=== PATIENT | male | born 1970 | race African-American/Black ===

== ENCOUNTER 2016-08-10 06:51 | Day surgery (SDC) | payer MEDICAID ==
[~2016-08-10 06:51] MED LIST: ACETAMINOPHEN 500 MG TABLET PO PRN; HYDROmorphone HCL 2 MG/ML VIAL IV PRN; MAG HYDROX/ALUMINUM HYD/SIMETH 30 ML UDC PO PRN; MAGNESIUM HYDROXIDE 30 ML UDC PO PRN; ONDANSETRON HCL/PF 2 MG/ML VIAL IV PRN; PROMETHAZINE HCL 25 MG in DEXTROSE 5 % IN WATER 50 ML IV PRN; RINGERS SOLUTION,LACTATED 1,000 ML IV PRN; ZOLPIDEM TARTRATE 5 MG TABLET PO PRN; ceFAZolin SODIUM 1 GM VIAL IV PRN; diphenhydrAMINE HCL 50 MG/ML VIAL IV PRN; oxyCODONE HCL/ACETAMINOPHEN 1 TAB TABLET PO PRN
[2016-08-10] MEDS ORDERED: RINGERS SOLUTION,LACTATED 1,000 ML IV ONE (07:21)
--- NOTE | 2016-08-10 09:03 | OR ---
Operative Report - Dictated Report Narrative: Date: 08/10/2016 Physician: Esa Vanegas M.D. Mortgage Loan Processor: Geoffrey Phillips PA-C Preoperative diagnosis: Symptomatic deep implants of right shoulder Postoperative diagnosis: Symptomatic deep implants of right shoulder Procedure: Deep implant removal right shoulder Anesthesia: General plus regional Complications: None Estimated blood loss: 100 mL Specimens: None Retained implants: None Drains: None Indications: Bunny Is a 45 year-old male who has been followed in my clinic with complaints of shoulder pain consistent with symptomatic deep implants. Physical exam and diagnostic imaging were consistent with his complaints and concern for impingement of his previous proximal humeral plate on the acromion. Conservative measures have failed including, but not limited to, passage of time, activity modification, medications, physical therapy/home exercise program , or injections. The risks, benefits, and alternatives were discussed in clinic. The risks being , bleeding, infection, blood clots, nerve, tendon , ligament, blood vessel injury, persistent pain, arthrosis, stiffness, need for prolonged therapy, need for additional procedures, and persistent symptoms. Consent was obtained in the clinic. Procedure: After marking the correct extremity in the preoperative holding area, a timeout was performed in the operating room. IV antibiotics consisting of 2 g of Ancef were administered prior to the procedure. A general followed by regional anesthetic was induced by the nurse hub inventory specialist. This was in the supine position, then the patient was transitioned to a lazy beachchair position with all bony prominences well-padded, head in neutral, the nonoperative arm well supported, and the legs padded with SCDs in place. The operative shoulder was then prepped and draped in a standard sterile fashion. Attention was turned to the previous scar on the right shoulder. This was used as our incision which was approximately 8 cm in length. Combination of blunt dissection and electrocautery was carried down through the subcutaneous tissue to the level of the deltopectoral fascia. This was incised and the deltopectoral interval was developed bluntly using finger dissection. He was noted to have significant scarring down of the deltoid which was bluntly released with finger dissection. The plate could be palpated and the tissue overlying the plate was debrided using a combination of electrocautery and sharp knife to reveal the plate. 3 proximal partially-threaded screws were removed followed by 4 distal cortical screws. An osteotome was then used to pry the plate from the bone which was then removed. Fluoroscopy was used to confirm removal of all implants. The wound was copiously irrigated with normal saline and closed in layered fashion. 0 Vicryl was utilized in order to repair the deltopectoral fascia. 3-0 Vicryl was placed in the subcutaneous tissue. The incision was closed with interrupted 4-0 nylon. Dressings consisting of Xeroform, 4 x 4, and tegaderm were applied. All sponge, needle, blade, and instrument counts were correct prior to closing the wounds. The patient was awoken and transferred to the postanesthesia care unit in stable condition.
[2016-08-10 10:48] VITALS: BP 118/66
[2016-08-10] MEDS ORDERED: SENNOSIDES/DOCUSATE SODIUM 1 TAB TABLET PO SCH (21:00)
== END 2016-08-10 06:52 | disposition home or self-care (01) ==
LOC: AMB 06:51
PROVIDERS: ATTEND Orthopaedic Surgery
PROC: 0RPJ04Z Removal of Internal Fixation Device from Right Shoulder Joint, Open Approach (ICD-10-PCS; principal; 2016-08-10 08:00)
DX: T84.84XA Pain due to internal orthopedic prosthetic devices, implants and grafts, initial encounter (principal); M25.511 Pain in right shoulder; Z68.30 Body mass index [BMI] 30.0-30.9, adult

== ENCOUNTER 2016-12-14 14:32 | Emergency (ER) | payer MEDICAID ==
[2016-12-14] MEDS ORDERED: TETRACAINE HCL 150 DROP BTL ONE (14:52)
[2016-12-14] MEDS ORDERED: GENTAMICIN SULFATE 3.5 APPL TUBE EACHEYE ONE (14:59)
[2016-12-14] MEDS ORDERED: IBUPROFEN 600 MG TABLET PO ONE (14:59)
--- NOTE | 2016-12-14 15:07 | ERNOTE ---
[facility] Date of Service: 12/14/16 Presenting Symptoms: eye pain Time Seen by Provider: 12/14/16 14:50 Source: patient, RN notes reviewed Exam Limitations: no limitations - Immun/Allergies/Home Medications Immunizations: IMMUNIZATION HX Immunizations Up to Date Yes History of Influenza Vaccine No Hx Pneumococcal Vaccination No Allergies/Adverse Reactions: Allergies Allergy/AdvReac Type Severity Reaction Status Date / Time shellfish derived Allergy Intermediate Hives Verified 12/14/16 14:44 Home Medications: HOME MEDICATIONS NK [No Home Medication] 12/14/16 [Last Taken Unknown] - History of Present Illness Narrative: 45 y/o male ambulatory to the ED for flash andre to both eyes 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 He reports starting to have pain last night that has continued today. 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 His last tetanus vaccination was in 2014. He has not taken anything for pain. He does not wear glasses or contacts. Date (Duration): 12/13/16 ENT Location: Present: eye (R), eye (L) Prearrival Treatment: Present: flushing eys Prior Treament: Reports: similar symptoms before. Denies: recently seen Review of Systems - Review of Systems Constitutional: Absent: recent illness, fever, chills EYE: Present: eye pain, tearing. Absent: eye discharge, blurred vision ENT: Absent: nose congestion, sore throat Respiratory: Absent: shortness of breath, cough Cardiology: Absent: chest pain, syncope Gastrointestinal/Abdominal: Absent: nausea, abdominal pain Genitourinary: Present: no symptoms reported Musculoskeletal: Present: no symptoms reported Skin: Absent: rash, lesions, change in color Neurological: Absent: headache, dizziness/light-headedness Endocrine: Present: no symptoms reported Hematologic/Lymphatic: Present: no symptoms reported Psych: Present: no symptoms reported - Patient's Past Medical History Patient History - Medical: GERD, Headache, Migraines, Other Patient History - Cardiac/Respiratory: No pertinent hx Patient History - Cancer: No Hx of Cancer Patient History - Surgical Procedures: Other Patient History - Other: None - Family History Mother Family History - Medical: No pertinent hx Family History - Cardiac/Respiratory: No pertinent hx Family History - Cancer: No pertinent family hx Father Family History - Medical: Diabetes Type 2 Family History - Cardiac/Respiratory: No pertinent hx Family History - Cancer: Other - Social History Living Situations: home Abuse History: No History of abuse Psych History: No pertinent hx Alcohol Use: none Drug Use: none - Immunizations Immunizations Up to Date: Yes Hx Pneumococcal Vaccination: No History of Influenza Vaccine: No Physical Exam - Physical Exam General Appearance: Present: wd/wn, alert, other - appears uncomfortable Eye Exam: PERRL: bilateral, EOMI: bilateral, Photophobia: bilateral, Other: bilateral - mild bilateral conjunctival injection and photophobia, no discharge Respiratory: Present: no respiratory distress, no accessory muscle use Neurological Exam: Present: alert, oriented, normal mood/affect Skin Exam: Present: normal color, warm/dry ED Progress - Vital Signs Patient's Vital Signs:: I have reviewed the patient's vital signs. Vital Signs: Vital Signs 12/14/16 14:39 Temperature 36.8 C Pulse Rate 66 Respiratory 12 Rate Blood Pressure 121/87 O2 Sat by Pulse 99 Oximetry - Progress/Reassessment Chief Complaint: Eye Injury/Trauma Progress:: Improved Procedures Eye Location: both eyes Tetracaine Drops Administered: Yes Eye - Cornea: Bilateral: examined w/fluorescein, fluorescein dye uptake - minimal Antibiotic Ointment/Drps Admin: both eyes Complications: Pt mag procedure well Departure Clinical Impression: Ultraviolet keratitis of both eyes - Departure Disposition: Home Follow Up Needed Condition: Stable Additional Instructions: See occupational health instruction sheet Referrals: Rebeca Méndez FNP [[facility]] -
[2016-12-14] MEDS ORDERED: IBUPROFEN 600 MG TABLET ONE (15:11)
[2016-12-14] MEDS ORDERED: GENTAMICIN SULFATE 50 DROP BTL ONE (15:12)
[2016-12-14 15:24] VITALS: BP 130/83
--- OUTSIDE RECORDS SUMMARY | 2016-12-14 15:24 | XMS REPORT | Continuity of Care Document ---
:1970 Author Organization [facility] [place] [address] Care Team Providers Name Role Phone Provider, None Per Patient Primary Care Provider Unavailable Source Comments This disclosure is being made pursuant to the MOD[employer] program and maynot contain all information available regarding this patient.[facility] Active Allergies and Adverse Reactions No Known Allergies Current Medications Be aware that medications may not be up to date as of this document. Alwaysverify current medications with the patient. No known medications Active Problems No known active problems Social History Tobacco Use Types Packs/Day Years Used Date Never Smoker Plan of Care Health Maintenance Due Date Last Done Comments Tetanus/Pertussis (1 - Tdap) 1989 Influenza Immunization (#1) 2016 Results from Last 3 Months Not on file
== END 2016-12-14 15:25 | disposition home or self-care (01) ==
LOC: ER 14:32
DX: H16.133 Photokeratitis, bilateral (principal); X58.XXXA Exposure to other specified factors, initial encounter; Y93.89 Activity, other specified; Y92.69 Other specified industrial and construction area as the place of occurrence of the external cause; Y99.0 Civilian activity done for income or pay

== ENCOUNTER 2016-12-26 17:26 | Emergency (ER) | payer MEDICAID ==
[2016-12-26] MEDS ORDERED: KETOROLAC TROMETHAMINE 60 MG/2 ML VIAL IM ONE ×2 (18:28→18:33)
--- NOTE | 2016-12-26 18:31 | ERNOTE ---
Upper Extremity HPI - Narrative Date of Service: 12/26/16 - General Extremities Pain Location: shoulder: right Time Seen by Provider: 12/26/16 18:13 Source: patient Exam Limitations: no limitations - Immun/Allergies/Home Medications Immunizations: IMMUNIZATION HX Immunizations Up to Date Yes History of Influenza Vaccine No Hx Pneumococcal Vaccination No Allergies/Adverse Reactions: Allergies Allergy/AdvReac Type Severity Reaction Status Date / Time shellfish derived Allergy Mild Hives Verified 12/26/16 17:52 Home Medications: HOME MEDICATIONS oxyCODONE HCL/ACETAMINOPHEN [Percocet 5 MG/325 MG] 1 tab PO Q4H PRN #20 tab [Last Taken Unknown] - History of Present Illness Narrative: Pt. comes in with c/o R shoulder pain after he heard a pop when fishing three hours prior to arrival. Pt. denies any CP, SOB, numbness or tingling but states that he is unable to lift his arm. Pt. denies any Alleviating factors but states that attempting to move the arm exacerbates the pain and he denies any prehospital treatment. Review of Systems - Review of Systems Constitutional: Present: no symptoms reported. Absent: recent illness, fever, chills, weakness, fatigue, malaise EYE: Present: no symptoms reported ENT: Present: no symptoms reported Respiratory: Present: no symptoms reported. Absent: shortness of breath, cough , wheezing Cardiology: Present: no symptoms reported. Absent: chest pain, palpitations, edema Gastrointestinal/Abdominal: Present: no symptoms reported. Absent: nausea, vomiting, diarrhea Genitourinary: Present: no symptoms reported. Absent: frequency, pain, dysuria , decreased urinary output Musculoskeletal: Present: joint pain - R shoulder Skin: Present: no symptoms reported. Absent: rash, change in color Neurological: Present: no symptoms reported. Absent: headache, dizziness/light- headedness, numbness, tingling All Other Systems: All systems neg except as marked - Patient's Past Medical History Patient History - Medical: GERD, Headache, Migraines Patient History - Cardiac/Respiratory: No pertinent hx Patient History - Cancer: No Hx of Cancer Patient History - Surgical Procedures: Other Patient History - Other: None - Family History Mother Family History - Medical: No pertinent hx Family History - Cardiac/Respiratory: Coronary Heart Disease Family History - Cancer: No pertinent family hx Father Family History - Medical: Diabetes Type 2 Family History - Cardiac/Respiratory: No pertinent hx Family History - Cancer: Myeloma, Pancreatic Brother Family History - Medical: No pertinent hx Family History - Cardiac/Respiratory: No pertinent hx Family History - Cancer: No pertinent family hx Sister Family History - Cardiac/Respiratory: No pertinent hx Family History - Cancer: History Unknown - Social History Living Situations: significant other Abuse History: No History of abuse Psych History: No pertinent hx Smoking Status: Former smoker Have you smoked in the past 12 months: No Do you dip or chew tobacco: No Alcohol Use: none Drug Use: none - Immunizations Immunizations Up to Date: Yes Hx Pneumococcal Vaccination: No History of Influenza Vaccine: No Physical Exam - Physical Exam General Appearance: Present: wd/wn, alert, no apparent distress Eye Exam: Normal inspection: bilateral, PERRL: bilateral, EOMI: bilateral Ears, Nose, Throat: Present: normal ENT inspection, normal pharynx Neck: Present: normal inspection, nontender. Absent: lymphadenopathy (R), lymphadenopathy (L) Respiratory: Present: no respiratory distress, normal breath sounds, no accessory muscle use, chest nontender, lungs clear Cardiovascular/Chest: Present: regular rate, rhythm, no murmur, normal peripheral pulses Back Exam: Present: normal inspection Extremity Exam: Present: decreased range of motion - abduction and rotation, joint swelling - R shoulder Neurological Exam: Present: alert, oriented, normal mood/affect, no motor/ sensory deficits, dry roller II-XII nml as tested, normal cerebellar test Skin Exam: Present: normal color, warm/dry. Absent: pallor, skin rash ED Progress - Vital Signs Patient's Vital Signs:: I have reviewed the patient's vital signs. Vital Signs: Vital Signs 12/26/16 17:42 Temperature 36.8 C Pulse Rate 77 Respiratory 18 Rate Blood Pressure 120/76 O2 Sat by Pulse 100 Oximetry - X-Ray X-Ray #1 X-Ray: shoulder Interpretation: Interp. by me X-ray Comments: no obvious acute ossious abnormailty, chronic shoulder changes - Progress/Reassessment Chief Complaint: Shoulder Injury/Pain Progress:: Improved Departure Clinical Impression: Strain of biceps tendon Qualifiers: Encounter type: initial encounter Laterality: right Qualified Code(s): S46.211A - Strain of muscle, fascia and tendon of other parts of biceps, right arm, initial encounter - Departure Disposition: Home self-care Condition: Good Instructions: Tendinitis and Tenosynovitis-SportsMed Additional Instructions: Please follow up with your orthopedic doctor as soon as you are able. Prescriptions: oxyCODONE HCL/ACETAMINOPHEN [Percocet 5 MG/325 MG] 1 tab PO Q4H PRN #20 tab PRN Reason: Pain
--- OUTSIDE RECORDS SUMMARY | 2016-12-26 18:34 | XMS REPORT | Continuity of Care Document ---
:1970 Author Organization [employer] [place] [address] Care Team Providers Name Role Phone Provider, None Per Patient Primary Care Provider Unavailable Source Comments This disclosure is being made pursuant to the [employer] program and maynot contain all information available regarding this patient.[facility] Active Allergies and Adverse Reactions No Known [...]
[2016-12-26 19:37] VITALS: BP 118/68
== END 2016-12-26 19:30 | disposition home or self-care (01) ==
LOC: ER 17:26
PROC: 2W3AXYZ Immobilization of Right Upper Arm using Other Device (ICD-10-PCS; principal; 2016-12-26)
DX: S46.211A Strain of muscle, fascia and tendon of other parts of biceps, right arm, initial encounter (principal); X58.XXXA Exposure to other specified factors, initial encounter; Y93.89 Activity, other specified; Y92.838 Other recreation area as the place of occurrence of the external cause

== ENCOUNTER 2017-02-10 08:06 | Day surgery (SDC) | payer MEDICAID ==
[~2017-02-10 08:06] MED LIST changes: -ACETAMINOPHEN 500 MG TABLET PO PRN; -MAG HYDROX/ALUMINUM HYD/SIMETH 30 ML UDC PO PRN; -MAGNESIUM HYDROXIDE 30 ML UDC PO PRN; -ONDANSETRON HCL/PF 2 MG/ML VIAL IV PRN; -PROMETHAZINE HCL 25 MG in DEXTROSE 5 % IN WATER 50 ML IV PRN; +RINGER'S SOLUTION,LACTATED 1,000 ML IV PRN; -RINGERS SOLUTION,LACTATED 1,000 ML IV PRN; -ZOLPIDEM TARTRATE 5 MG TABLET PO PRN; -diphenhydrAMINE HCL 50 MG/ML VIAL IV PRN
--- OUTSIDE RECORDS SUMMARY | 2017-02-10 08:08 | XMS REPORT | Clinical Summary ---
:1970 Author Organization [employer] [facility] [place] [address] Care Team Providers Name Role Phone Unavailable Primary Care Provider Unavailable Source Comments This disclosure is being made pursuant to the [employer] program and maynot contain all information available regarding this patient.[facility] Allergies No Known Allergies Current Medications Be aware that medications may not be up to date as of this document. Alwaysverify current medications with the patient. No known medications Active Problems No known active problems Family History Medical History Relation Name Comments Other Other Coronary artery disease - All Family: Noted on 2007-04-18 17:18:47 Other Other Rheumatoid arthritis - All Family: Noted on 2007-04-18 17:18:47 Other Other Cancer- other - All Family: Noted on 2007-04-18 17:18:47 Other Other Prostate cancer - All Family: Noted on 2007-04-18 17:18:47 Other Other Hypertension - All Family: Noted on 2007-04-18 17:18:47 Other Other Breast cancer - All Family: Noted on 2007-04-18 17:18:47 Other Other Colorectal cancer - All Family: Noted on 2007-04-18 17:18:47 Relation Name Status Comments Other Other Other Other Other Other Other Social History Tobacco Use Types Packs/Day Years Used Date Never Smoker Sex Assigned at Date Recorded Not on file Last Filed Vital Signs Not on file Plan of Treatment Health Maintenance Due Date Last Done Comments Tetanus/Pertussis (1 - Tdap) 1989 INFLUENZA IMMUNIZATION (#1) 2017 Results Not on filefrom Last 3 Months Insurance Payer Benefit Plan / Subscriber ID Type Phone Address Group [place] [id number] [place] [phone] Home: [address] [phone] [place] [id number]
--- NOTE | 2017-02-10 12:07 | OR ---
Operative Report - Dictated Report Narrative: Date: 02/10/2017 Physician: Esa Vanegas M.D. Silver Solderer: Naresh Gonzalez PA-C Preoperative diagnosis: Right Shoulder rotator cuff tear, bicipital tenosynovitis Postoperative diagnosis: Right Shoulder massive rotator cuff tear, long head of the biceps tear Procedure: Right shoulder arthroscopy with mini open rotator cuff repair, biceps tenotomy Anesthesia: General plus regional Complications: None Estimated blood loss: Minimal Specimens: None Retained implants: [employer] Healicoil anchors 3, footprint anchors 2 Drains: None Indications: Bunny Is a 46 year-old male who has been followed in my clinic with complaints of shoulder pain consistent with rotator cuff tear and bicipital tenosynovitis. Physical exam and diagnostic imaging were consistent with his complaints and concern for full-thickness retracted tear of the supraspinatus with involvement of the infraspinatus, and tendinopathy versus tearing of the biceps tendon. Conservative measures have failed including, but not limited to , passage of time, activity modification, medications, physical therapy/home exercise program, or injections. The risks, benefits, and alternatives were discussed in clinic. The risks being , bleeding, infection, blood clots, nerve, tendon, ligament, blood vessel injury, persistent pain, arthrosis, stiffness, need for prolonged therapy, need for additional procedures, and persistent symptoms. Consent was obtained in the clinic. Procedure: After marking the correct extremity in the preoperative holding area, a timeout was performed in the operating room. IV antibiotics consisting of 2 g of Ancef were administered prior to the procedure. A general followed by regional anesthetic was induced by the nurse director of kids. This was in the supine position, then the patient was transitioned to a beachchair position with all bony prominences well-padded, head in neutral, the nonoperative arm well supported, and the legs padded with SCDs in place. The operative shoulder was then prepped and draped in a standard sterile fashion. Preoperatively the shoulder had full passive range of motion and no instability. After marking out the bony landmarks, saline was infused into the joint through a posterior lateral portal site. A sarah incision was made, and the blunt trocar and cannula was introduced into the shoulder joint. An anterior working portal was placed in the rotator cuff interval using a spinal needle for guidance. Upon initial evaluation, the biceps tendon showed significant thickening with a longitudinal tear extending all the way down into the bicipital groove. The middle glenohumeral ligament was intact. Subscapularis tendon was and frayed at the most superior aspect of its insertion but intact. The glenoid showed grade 1 and grade 2 chondral changes centrally. The humeral head articular surface showed mild grade 1 chondral change. The anterior labrum was frayed but intact. The superior labrum was torn and detached from the superior labrum from the bicipital anchor all the way to the posterior aspect. The pouch was of normal caliber with no loose bodies. The posterior labrum was frayed but intact. The supraspinatus tendon was completely torn and retracted nearly to the glenoid. The infraspinatus tendon was torn and significantly frayed with mild retraction. Using rotator cuff graspers we performed blunt release of the supraspinatus and infraspinatus tendons and attempted to pull them over to the level of the cuff footprint. There was significant tension we were able to pull them over far enough that I believed an attempted repair was possible. At this point we lightly debrided the anterior and superior labrum and then proceeded with a biceps tenotomy using a combination of the 4.0 mm shaver and arthroscopic scissors. Attention was then turned to the subacromial space. Minimal subacromial bursectomy had to be performed performed utilizing the prior portals. The coracoacromial ligament was intact. We again noted the full-thickness and retracted tear of the supraspinatus and at least the superior half of the infraspinatus consistent with a massive retracted rotator cuff tear. The infraspinatus was significantly frayed and thinned and the supraspinatus tendon demonstrated significant tendinopathy consistent with a chronic tear. The acromial arch demonstrated normal morphology without any obvious impingement onto the rotator cuff. Based on the arthroscopic findings of a massive, chronic retracted tear, as well as exam and radiographic findings, it was elected to proceed with a mini open rotator cuff repair. A longitudinal incision centered over the previously identified rotator cuff tear was made just off the edge of the acromion. This was approximately 5 centimeters in length. The deltoid fascia was split sharply in line with its fibers, and blunt dissection was carried through the deltoid muscle. Any remaining subacromial bursal tissue was debrided in order to expose the underlying rotator cuff tear. The rotator cuff tear appeared to be a crescent-shaped and retracted nearly to the level of the glenoid. Blunt finger dissection was used to break up adhesions between the infraspinatus and the deltoid fascia as well as perform more medial release of the infraspinatus and supraspinatus tendons. The tuberosity was then debrided of its soft tissues producing a bleeding bed for the tendon to be secured to. Three 4.5 mm PEEK helicoil anchor were placed just off the articular surface of the humeral head starting posteriorly and working anteriorly evenly spaced over the footprint. A series of horizontal mattress sutures were placed at the prepared edge of the rotator cuff starting posteriorly and the superior aspect of the infraspinatus and working anteriorly. This allowed for a return of the tendon to the greater tuberosity without undue tension. The sutures were then passed longitudinally into two 4.5 mm PEEK footprint anchors. This was performed using a suture bridge technique. This gave good overall compression to the rotator cuff at the insertion site. The shoulders place a range of motion and had no lift off of the repair site as well as no crepitance or signs of impingement. Full passive range of motion was able to be obtained. Once it was felt that the rotator cuff was adequately repaired, the wounds were thoroughly irrigated. 0 Vicryl was utilized in order to repair the deltoid fascia. 3-0 Vicryl was placed in the subcutaneous tissue. The rotator cuff incision as well as the portal sites were closed with interrupted 4-0 nylon. Dressings consisting of Xeroform, 4 x 4, ABD, soft roll, and tape were applied. All sponge, needle, blade, and instrument counts were correct prior to closing the wounds. The patient was awoken and transferred to the postanesthesia care unit in stable condition.
--- NOTE | 2017-02-10 12:09 | OR ---
Anesthesia Procedure Note - Anesthesia Procedure Note Date of Service: 02/10/17 Narrative: Vital Signs - Last Taken Temp 37.0 C 02/10/17 08:49 Pulse 67 02/10/17 08:49 Resp 16 02/10/17 08:49 BP 102/74 02/10/17 08:49 Pulse Ox 99 02/10/17 08:49 O2 Oxygen Delivery Method Room Air 02/10/17 12:07 ANESTHESIA PROCEDURE NOTE Date of Procedure: 02/10/2017 Time of procedure: 9 AM. Performed by: NANY Rivas CRNA, MSN [employer] Director: Nadia Gayle RN. Preprocedure diagnosis: Right shoulder surgical pain. Post procedure diagnosis: Same. Procedure: Right Interscalene nerve block. Indications: Post right shoulder surgery pain relief. Findings: See below. Details of the procedure: The patient was brought to OR #4 and placed in semi- Fowlers position. The patient was prepped with chlorhexidine and using ultrasound guidance the right interscalene segment of the brachial plexus was identified and lidocaine 1% was infiltrated to the skin of the intended injection site. Under ultrasound guidance the interscalene nerve bundles were approached until a shoulder/arm response was identified on nerve stimulator. Once the stimulator response was effective at less than 0.5 mV and greater than 0.3 mV the femoral nerve was surrounded with 40 mL bupivacaine 0.25% with 1-200 ,000 epinephrine. Please see radiology/ultrasound report for details and images of the procedure. EBL: 0 Fluids: N/A. Specimen: N/A. Post procedure condition: The patient tolerated the procedure well. No complications were noted. Thank you for this consultation. Jorge Howard CRNA, ARNP, MSN
[2017-02-11 16:28] VITALS: BP 108/74
== END 2017-02-10 08:07 | disposition home or self-care (01) ==
LOC: AMB 08:06
PROVIDERS: ATTEND Orthopaedic Surgery
PROC: 0LM10ZZ Reattachment of Right Shoulder Tendon, Open Approach (ICD-10-PCS; 2017-02-10)
PROC: 3E0T3BZ Introduction of Anesthetic Agent into Peripheral Nerves and Plexi, Percutaneous Approach (ICD-10-PCS; 2017-02-10)
PROC: 0RBJ4ZZ Excision of Right Shoulder Joint, Percutaneous Endoscopic Approach (ICD-10-PCS; principal; 2017-02-10 09:30)
DX: M75.121 Complete rotator cuff tear or rupture of right shoulder, not specified as traumatic (principal); S46.811A Strain of other muscles, fascia and tendons at shoulder and upper arm level, right arm, initial encounter; M75.21 Bicipital tendinitis, right shoulder; Z68.29 Body mass index [BMI] 29.0-29.9, adult

== ENCOUNTER 2017-05-19 12:30 | Observation (INO) | payer MEDICAID ==
[2017-05-19] MEDS ORDERED: DIATRIZOATE MEGLUMINE, SODIUM 30 ML BTL PO ONE (13:35)
[2017-05-19 13:58] LABS: Hematocrit 41.4 % (42.0-52.0); Hemoglobin 14.2 gm/dL (13.5-18.0); Mean Cell Volume 91.2 fl (78-100); Mean Corpuscular Hemoglobin 31.3 pg (27-31); Mean Corpuscular Hgb Conc 34.3 g/dl (32-36); Mean Platelet Volume 9.6 fl (6.0-9.5); Neutrophil # 6.7 K/mm3 (1.3-6.0); Neutrophil % 80.4 % (42-75.0); Platelet Count 215 K/mm3 (150-450); Red Blood Count 4.54 M/mm3 (4.7-6.0); Red Cell Distribution Width 12.1 % (11.5-14.0); White Blood Count 8.3 K/mm3 (4.0-10.5)
[2017-05-19] MEDS ORDERED: DIATRIZOATE MEGLUMINE, SODIUM 30 ML BTL ONE (14:09)
[2017-05-19 14:10] LABS: Albumin * 3.8 gm/dl (3.4-5.0); Anion Gap 12.1 mmol/L (6.8-13.8); BUN/Creatinine Ratio 18.7 (9.0-21.6); Bilirubin, Total 0.6 mg/dL (0.0-1.1); Ca. Corrected For Albumin 8.3 mg/dL (8.4-10.2); Calcium * 8.5 mg/dL (7.9-10.9); Carbon Dioxide 27.2 mmol/L (24-32.6); Potassium 3.3 mmol/L (3.4-4.6); Total Protein 7.5 gm/dL (6.2-8.2)
[2017-05-19 15:39] LABS: Urine Appearance Clear; Urine Bacteria None Seen; Urine Bilirubin Negative (NEGATIVE); Urine Blood 25 /ul (NEGATIVE); Urine Color Dark Yellow; Urine Ketone Negative (NEGATIVE); Urine Nitrite Negative (NEGATIVE); Urine Protein Negative (NEGATIVE); Urine RBC 0-5 /hpf (0-5); Urine Specific Gravity 1.025 SP.GR. (1.005-1.030); Urine Urobilinogen Normal (NORMAL); Urine WBC None Seen /hpf (0-5); Urine pH 6.5 pH (5.0-7.0)
[2017-05-19] MEDS ORDERED: PIPERACILLIN SODIUM/TAZOBACTAM 3.375 GM in DEXTROSE 5 % IN WATER 100 ML IV ONE ×2 (16:23)
[2017-05-19] MEDS ORDERED: MORPHINE SULFATE 4 MG/ML SYRG IV ONE (16:23)
[2017-05-19] MEDS ORDERED: NORMAL SALINE 1,000 ML IV ONE (16:23)
[2017-05-19] MEDS ORDERED: MORPHINE SULFATE 4 MG/ML SYRG ONE (16:53)
--- NOTE | 2017-05-19 17:34 | HP ---
Chief Complaint - Chief Complaint Date of Service: 05/19/17 Time of Service: 17:26 Chief Complaint: RUQ abdominal pain, severe History of Present Illness: Very pleasant 46 year old black male presented to the emergency room with the sudden onset of RUQ abdominal pain at 0900. It was so severe it curled him up on the floor. A workup here has shown a normal WBC. A CT of the abdomen was consistent with acute cholecystitis and an US was recommended. The ultrasound confirms acute cholecystitis without obvious stones. The CBD was normal. - Patient's Past Medical History Patient History - Medical: GERD, Headache, Migraines Patient History - Cardiac/Respiratory: No pertinent hx Patient History - Cancer: No Hx of Cancer Patient History - Surgical Procedures: Other, Orthopedic Patient History - Other: None - Family History Mother Family History - Medical: No pertinent hx Family History - Cardiac/Respiratory: Coronary Heart Disease Family History - Cancer: No pertinent family hx Father Family History - Medical: Diabetes Type 2 Family History - Cardiac/Respiratory: No pertinent hx Family History - Cancer: Myeloma, Pancreatic Brother Family History - Medical: No pertinent hx Family History - Cardiac/Respiratory: No pertinent hx Family History - Cancer: No pertinent family hx Sister Family History - Medical: Other Family History - Cardiac/Respiratory: No pertinent hx Family History - Cancer: History Unknown, Other - Social History Abuse History: No History of abuse Psych History: No pertinent hx Have you smoked in the past 12 months: No Do you dip or chew tobacco: No - Immunizations Immunizations Up to Date: Yes Hx Pneumococcal Vaccination: No History of Influenza Vaccine: No Review Of Systems (GEN) - Review of Systems Abdominal: Present: Other - see HPI Musculoskeletal: Present: Other - recently changed jobs due to shoulder trouble Misc: All systems neg except as marked Allergies/Adverse Reactions: Allergies Allergy/AdvReac Type Severity Reaction Status Date / Time shellfish derived Allergy Mild Hives Verified 05/19/17 12:53 milk AdvReac Mild Diarrhea Verified 05/19/17 12:53 Home Medications: HOME MEDICATIONS NK [No Home Medication] 05/19/17 [Last Taken Unknown] Exam - Exam Vital Signs: Vital Signs - Last Taken Temp 36.8 C 05/19/17 12:50 Pulse 76 05/19/17 15:30 Resp 18 05/19/17 12:50 BP 122/78 05/19/17 15:30 Pulse Ox 99 05/19/17 15:30 Constitutional: Present: Alert, Oriented x3, Cooperative, Well developed, Well nourished, No distress ENT Exam: Present: normal ENT inspection Eye Exam: bilateral eye: other - Sclera anicteric Neck: Present: non-tender, full range of motion, supple, normal inspection, trachea midline. Absent: lymphadenopathy (R), lymphadenopathy (L), thyromegaly Back Exam: Present: no CVA tenderness Respiratory: Present: lungs clear, normal breath sounds, no respiratory distress , no accessory muscle use Cardiovascular/Chest: Present: regular rate, rhythm, no murmur Abdomen: Present: Normal bowel sounds, soft, tender - slightly tender in RUQ /Rectal: Present: Exam deferred Extremity: Present: normal inspection Skin Exam: Present: warm/dry Neurologic: Present: no motor/sensory deficits Appearance: Present: appropriate appearance, appropriate insight Eye contact: Present: cooperative Thoughts: Present: normal thought pattern Diagnostic Studies: Laboratory Results WBC 8.3 K/mm3 (4.0-10.5) 05/19/17 13:53 RBC 4.54 M/mm3 (4.7-6.0) L 05/19/17 13:53 Hgb 14.2 gm/dL (13.5-18.0) 05/19/17 13:53 Hct 41.4 % (42.0-52.0) L 05/19/17 13:53 MCV 91.2 fl (78-100) 05/19/17 13:53 MCH 31.3 pg (27-31) H 05/19/17 13:53 MCHC 34.3 g/dl (32-36) 05/19/17 13:53 RDW 12.1 % (11.5-14.0) 05/19/17 13:53 Plt Count 215 K/mm3 (150-450) 05/19/17 13:53 MPV 9.6 fl (6.0-9.5) H 05/19/17 13:53 Immature Gran % (Auto) 0.50 % (0.001-0.429) H 05/19/17 13:53 Immature Gran # (Auto) 0.04 K/mm3 (0.000-0.0310) H 05/19/17 13:53 Neutrophils % 80.4 % (42-75.0) H 05/19/17 13:53 Lymphocytes % 11.2 % (20-51) L 05/19/17 13:53 Monocytes % 7.2 % (0.0-9) 05/19/17 13:53 Eosinophils % 0.5 % (0.0-3.0) 05/19/17 13:53 Basophils % 0.2 % (0.0-1.0) 05/19/17 13:53 Nucleated RBC % 0.0 k/mm3 (0-1) 05/19/17 13:53 Neutrophils # 6.7 K/mm3 (1.3-6.0) H 05/19/17 13:53 Lymphocytes # 0.9 k/mm3 (1.5-3.5) L 05/19/17 13:53 Monocytes # 0.6 k/mm3 (0.0-1.0) 05/19/17 13:53 Eosinophils # 0.0 k/mm3 (0.0-0.7) 05/19/17 13:53 Absolute Basophils 0.0 k/mm3 (0.0-0.1) 05/19/17 13:53 Sodium 143 mmol/L (132-142) H 05/19/17 13:53 Plasma Sodium 143 mmol/L (130-142) H 05/19/17 13:53 Potassium 3.3 mmol/L (3.4-4.6) L D 05/19/17 13:53 Chloride 107 mmol/L (97-106) H 05/19/17 13:53 Carbon Dioxide 27.2 mmol/L (24-32.6) 05/19/17 13:53 Anion Gap 12.1 mmol/L (6.8-13.8) 05/19/17 13:53 BUN 14 mg/dL (6-23) D 05/19/17 13:53 Creatinine 0.75 mg/dL (0.4-1.4) 05/19/17 13:53 Est GFR (Non-Af Amer) 144 mL/min (60-130) H 05/19/17 13:53 BUN/Creatinine Ratio 18.7 (9.0-21.6) 05/19/17 13:53 Random Glucose 108 mg/dL (70-110) 05/19/17 13:53 Calcium 8.5 mg/dL (7.9-10.9) 05/19/17 13:53 Calcium Adj for Albumin 8.3 mg/dL (8.4-10.2) L 05/19/17 13:53 Total Bilirubin 0.6 mg/dL (0.0-1.1) 05/19/17 13:53 AST 80 U/L (0-48) H 05/19/17 13:53 ALT 68 U/L (19-67) H 05/19/17 13:53 Alkaline Phosphatase 119 U/L (50-170) 05/19/17 13:53 Total Protein 7.5 gm/dL (6.2-8.2) 05/19/17 13:53 Albumin 3.8 gm/dl (3.4-5.0) 05/19/17 13:53 Amylase 57 U/L (25-115) 05/19/17 13:53 Lipase 71 U/L (73-393) L 05/19/17 13:53 Urine Color Dark yellow 05/19/17 15:24 Urine Appearance Clear 05/19/17 15:24 Urine pH 6.5 pH (5.0-7.0) 05/19/17 15:24 Ur Specific [place] 1.025 SP.GR. (1.005-1.030) 05/19/17 15:24 Urine Protein Negative mg/dL (NEGATIVE) 05/19/17 15:24 Urine Glucose (UA) Negative mg/dL (NEGATIVE) 05/19/17 15:24 Urine Ketones Negative mg/dL (NEGATIVE) 05/19/17 15:24 Urine Blood 25 /ul (NEGATIVE) H 05/19/17 15:24 Urine Nitrate Negative (NEGATIVE) 05/19/17 15:24 Urine Bilirubin Negative mg/dl (NEGATIVE) 05/19/17 15:24 Urine Urobilinogen Normal EU/dl (NORMAL) 05/19/17 15:24 Ur Leukocyte Esterase Negative /ul (NEGATIVE) 05/19/17 15:24 Urine RBC 0-5 /hpf (0-5) 05/19/17 15:24 Urine WBC None seen /hpf (0-5) 05/19/17 15:24 Ur Epithelial Cells None seen /hpf (0-5) 05/19/17 15:24 Urine Bacteria None seen (NONE) 05/19/17 15:24 Urine Culture Comments No culture indicated 05/19/17 15:24 Assessment/Plan - Assessment/Plan (1) Acute acalculous cholecystitis Assessment: Plan a brief cooling off period followed by attempted laparoscopic cholecystectomy possible open. The options, risks, and benefits were reviewed with him fully. He seems to understand, asks appropriate questions, and desires to proceed. Problem: Acute
--- NOTE | 2017-05-19 17:40 | ERNOTE ---
Abdominal HPI - Narrative Date of Service: 05/19/17 - General Chief Complaint: Abdominal Pain Time Seen by Provider: 05/19/17 13:29 Source: patient Exam Limitations: no limitations - Immun/Allergies/Home Medications Immunizatons: IMMUNIZATION HX Immunizations Up to Date Yes History of Influenza Vaccine No Hx Pneumococcal Vaccination No Allergies/Adverse Reactions: Allergies shellfish derived Allergy (Mild, Verified 05/19/17 12:53) Hives milk Adverse Reaction (Mild, Verified 05/19/17 12:53) Diarrhea Home Medications: HOME MEDICATIONS NK [No Home Medication] 05/19/17 [Last Taken Unknown] - History of Present Illness Narrative: Patient presents to the ED with right sided abdominal pain since 9am today. He has never had this before. Nothing makes this better or worse. It is better now on its own. Was severe earlier. Has never had anything like this before. Diffuse right sided. Nausea, no diarrhea. Vomited this am. Currently moderate pain. no radiation of the pain. Timing: constant Quality: moderate Activities at Onset: none Modifying Factors - (Improves): Present: other - nothing Modifying Factors - (Worsens): Present: other - nothing Associated Symptoms: Absent: back pain, chest pain, fever/chills, shortness of breath Prior Abdominal Problems: Present: none Prior Treatment: Absent: recently seen Review of Systems - Review of Systems Constitutional: Absent: fever Respiratory: Absent: shortness of breath Cardiology: Absent: chest pain Gastrointestinal/Abdominal: Present: See HPI Genitourinary: Absent: dysuria Skin: Absent: rash All Other Systems: All systems neg except as marked - Patient's Past Medical History Patient History - Medical: GERD, Headache, Migraines Patient History - Cardiac/Respiratory: No pertinent hx Patient History - Cancer: No Hx of Cancer Patient History - Surgical Procedures: Other, Orthopedic Patient History - Other: None - Family History Mother Family History - Medical: No pertinent hx Family History - Cardiac/Respiratory: Coronary Heart Disease Family History - Cancer: No pertinent family hx Father Family History - Medical: Diabetes Type 2 Family History - Cardiac/Respiratory: No pertinent hx Family History - Cancer: Myeloma, Pancreatic Brother Family History - Medical: No pertinent hx Family History - Cardiac/Respiratory: No pertinent hx Family History - Cancer: No pertinent family hx Sister Family History - Medical: Other Family History - Cardiac/Respiratory: No pertinent hx Family History - Cancer: History Unknown, Other - Social History Abuse History: No History of abuse Psych History: No pertinent hx Have you smoked in the past 12 months: No Do you dip or chew tobacco: No - Immunizations Immunizations Up to Date: Yes Hx Pneumococcal Vaccination: No History of Influenza Vaccine: No Physical Exam - Physical Exam General Appearance: Present: alert, no apparent distress Head Exam: Present: normal inspection, no evidence of injury Eye Exam: Normal inspection: bilateral, PERRL: bilateral Ears, Nose, Throat: Present: normal ENT inspection Neck: Present: normal inspection Respiratory: Present: no respiratory distress, normal breath sounds, no accessory muscle use, lungs clear Cardiovascular/Chest: Present: regular rate, rhythm Gastrointestinal/Abdominal: Present: normal bowel sounds, nondistended, soft, other - diffuse right sided pain, no rebound but some guarding Male Genitals Exam: Present: normal genitalia, other - no testicular tendenress. No evidenceo f incarcerated or strangulated hernia Back Exam: Absent: CVA tenderness (R), CVA tenderness (L) Extremity Exam: Present: normal inspection Neurological Exam: Present: alert, normal mood/affect, no motor/sensory deficits Skin Exam: Present: normal color, warm/dry ED Progress - Results and Orders Patient's Lab Results:: I have reviewed the patient's lab results. - Vital Signs Patient's Vital Signs:: I have reviewed the patient's vital signs. Vital Signs: Vital Signs 05/19/17 05/19/17 12:50 15:30 Temperature 36.8 C Pulse Rate 78 76 Respiratory 18 Rate Blood Pressure 120/76 122/78 O2 Sat by Pulse 100 99 Oximetry - CT/Ultrasound CT/Ultrasound Narrative: I reviewed official CT and US report - Progress/Reassessment Chief Complaint: Abdominal Pain Progress Note-Subjective: 05/19/17 17:39 D/W Dr Park. He recommends US - done. Admit to Dr Park. Departure Clinical Impression: Cholecystitis - Departure Disposition: [facility] Condition: Stable
[2017-05-19] MEDS ORDERED: MORPHINE SULFATE 2 MG/ML DISP.SYRIN IV PRN (17:43)
[2017-05-19] MEDS ORDERED: ONDANSETRON HCL/PF 2 MG/ML VIAL IV PRN (17:44)
[2017-05-19] MEDS: RINGER'S SOLUTION,LACTATED 1,000 ML IV PRN (20:00)
[2017-05-20] MEDS: PIPERACILLIN SODIUM/TAZOBACTAM 3.375 GM in DEXTROSE 5 % IN WATER 100 ML IV SCH ×4 (01:22→08:28)
[2017-05-20] MEDS: RINGER'S SOLUTION,LACTATED 1,000 ML IV PRN ×3 (04:55→14:40)
[2017-05-20] MEDS ORDERED: BUPIVACAINE HCL 50 ML VIAL IJ ONE (15:05)
[2017-05-20] MEDS ORDERED: RINGER'S SOLUTION,LACTATED 1,000 ML IV ONE (15:55)
--- NOTE | 2017-05-20 16:22 | OR ---
Operative Report - Dictated Report Narrative: Date: 05/20/2017 Preop dx: acute acalculous cholecystitis Postop dx: same Procedure: Laparoscopic cholecystectomy Staff surgeon: Marlon Park MD Anesthesia: GETA EBL: 30cc Specimen: gallbladder drains: none description: Pt was placed in supine position and following GETA the abdomen was prepped and draped in a sterile fashion. All port sites were anesthetized with marcaine prior to incision. A 5mm infraumbilical incision was carried out. A perforated towel clip was placed through the umbilical raphe for countertraction. The abdomen was entered under direct vision with a 5mm blunt port with a scope within the lumen of the trocar. The abdomen was then insufflated to a pressure of 15mmHg with carbon dioxide. Under direct vision a superior midline 12mm port and two right flank 5mm ports were inserted. The gallbladder was pale and edematous. The fundus was grasped and elevated toward the diaphragm. The duodenum was adherent to the infundibulum and this was taken down with blunt dissection. The infundibulum was then grasped for countertraction. The cystic duct and cystic artery were then isolated with a critical view of safety. These structures were then doubly clipped and divided as was a posterior branch of the artery. The gallbladder was then dissected out of the fossa with blunt, and scissor dissection, and electrocautery. Part way up the fossa a tubular structure possibly consistent with a duct of luschka was clipped and cauterized. Once liberated the gallbladder was placed in an endocatch bag and removed through the superior midline port. Pneumoperitoneum was re-established. Inspection was carried out. Hemostasis appeared to be adequate. There was no apparent bile leak. All the irrigant was evacuated. The remainder of the marcaine was squirted into the peritoneal cavity. The superior midline fascial defect was closed with a fernanda-lesly device and heavy vicryl suture. The pneumoperitoneum and remaining ports were evacuated. The incisions were closed with subcuticular stitches of 4-0 vicryl and sealed with dermabond. The patient tolerated the procedure well without any apparent complications and was discharged from the operating room in stable condition.
--- NOTE | 2017-05-20 16:36 | DS ---
(1) Acute acalculous cholecystitis Problem: Resolved Description of Stay: This pleasant gentleman presented to the ER last night with s/s c/w acute cholecystitis. CT showed the findings and this was confirmed by US as well. Curiously the US showed no stones. CBD was normal. He underwent a brief cooling off period on zosyn and was taken to the OR the following day. A lap colt was performed and he tolerated that well. It is anticipated that he will discharge this evening. Script for Wiley 5/325 1-2 po q 4 hrs prn #50 and motrin 800 mg po tid x 5 days were written. Diet as tolerated. Avoid lifting > 20 lb x 1 week. FU next tuesday. Procedures Performed: see notes below List Procedures: Laparoscopic cholecystectomy Discharge Disposition: Home self care Disposition: Home self-care Condition: Good Discharge Activity: No Lifting - > 20 lb x 1 week Discharge Diet: General/regular food Complete Home Medications List: Complete Home Medication List: Tramadol HCl [Rybix Odt] 100 mg PO PRN 05/19/17
[2017-05-20 18:01] VITALS: BP 121/81
== END 2017-05-20 18:55 | disposition home or self-care (01) ==
LOC: ER 12:30 → MS 16:37
PROVIDERS: ADMIT Specialist; ATTEND Specialist
PROC: 0FT44ZZ Resection of Gallbladder, Percutaneous Endoscopic Approach (ICD-10-PCS; principal; 2017-05-20 15:15)
DX: K81.0 Acute cholecystitis (principal); K21.9 Gastro-esophageal reflux disease without esophagitis; Z68.29 Body mass index [BMI] 29.0-29.9, adult
CPT/HCPCS: 36415; 47562; 74177; 76705; 80053; 81001; 82150; 83690; 85025; 88304; 96365; 96366; 96375; 96376; 99285; G0378